=== PATIENT | female | born 1955 | race Caucasian/White ===

== ENCOUNTER 2017-03-02 13:51 | Emergency (ER) | payer OTHER ==
[2017-03-02 13:55] VITALS: TEMP 98.2; BMI 22.1
--- NOTE | 2017-03-02 14:58 | PDOC ---
Attending Attestation - Resident Resident Name: Jason Sanz - ED Attending Attestation I have performed the following: I have examined & evaluated the patient, The case was reviewed & discussed with the resident, I agree w/resident's findings & plan, Exceptions are as noted - HPI HPI: 03/02/17 18:10 61y F hx of bronchiectasis presents with presyncope. THe pt states she was doing well this morning and earlier when she was at the gym, she was driving home from [facility] when she felt her vision go dark, sound became very far away,a nd she felt lightheaded. She pulled over and began to feel fine. The pt denies any associated headache, speech changes, numbness/tingling/weakness, chest pain , palptaitions, diaphoresis, n/v, abd pain, back pain associated wit the symptoms - she describes it as feelin glike she was in a choke hold from in [employer]. Pt does endrose feeling some neck stiffness on R neck when she was taking a shower at home but it has sine resolved. Pt notes b/l finger tingling which is typical for her after going to the gym. pts exam unremarakble. GENERAL: The patient is awake, alert, and fully oriented, Nontoxic - in no acute distress. HEAD: Normocephalic, atraumatic. EYES: extraocular movements intact, sclera anicteric, conjunctiva clear. ENT: Normal voice, Moist mucous membranes. NECK: Normal range of motion, supple LUNGS: Breath sounds equal, clear to auscultation bilaterally. No wheezes, no rhonchi, no rales. HEART: Regular rate and rhythm, normal S1 and S2 without murmur, rub or gallop. ABDOMEN: Soft, nontender, normoactive bowel sounds. No guarding, no rebound. . No CVA tenderness EXTREMITIES: Normal range of motion, no edema. No clubbing or cyanosis. No cords, erythema, or tenderness. NEUROLOGICAL: No facial assymetry, Normal speech, PSYCH: Normal mood, normal affect. SKIN: Warm, Dry, normal turgor, Suspect vagal episode however differential for the patient's presyncopal episode includes arrhythmia, metabolic derangements, anemia. Consider possible arrhythmia the patient's EKG is a sinus rhythm The patient has few other risk factors for arrhythmias. The patient's blood work was reviewed without any abnormalities aside an elevated CK. I suspect that this may be secondary to the patient's 1 hour long work out at the gym Will hydrate the patient and will recheck the CK if it is on a down trend will likely discharge patient with primary care follow-up. - Physicial Exam PE: 03/03/17 12:23 see above - Medical Decision Making 03/03/17 12:23 see above Heart Score/ECG Review - ECG Impressions Comment:: 03/02/17 18:18 Twelve-lead EKG was performed and reviewed by me. There is normal sinus rhythm with a normal rate. rate of [address] changes suggestive of ischemia imp: NSR
[2017-03-02 15:09] LABS: BASOPHIL 0.3 % (0-2.0); EOSINOPHIL 2.5 % (0-4.5); MCH 32.6 pg (25.7-33.7); MCHC 34.5 g/dl (32.0-36.0); MEAN CELL VOLUME 94.3 fl (80-96); MEAN PLT VOLUME 8.4 fl (7.5-11.1); NEUTROPHILS 66.2 % (42.8-82.8); PLATELET COUNT 177 K/MM3 (134-434); RDW 13.3 % (11.6-15.6); WHITE BLOOD COUNT 7.2 K/mm3 (4.0-10.0)
[2017-03-02 15:39] LABS: ALBUMIN 4.1 g/dl (3.4-5.0); ALK PHOS 69 U/L (45-117); ANION GAP 9 (8-16); BILIRUBIN,TOTAL 0.5 mg/dL (0.2-1.0); CO2 29 mmol/L (21-32); CREATININE 0.9 mg/dL (0.55-1.02); GLUCOSE,RANDOM 93 mg/dL (74-106); SGOT/AST 94 U/L (15-37); SGPT/ALT 49 U/L (12-78); TOT PROT 6.9 g/dl (6.4-8.2)
[2017-03-02 15:52] LABS: CPK 5230 IU/L (26-192); TROPONIN I < 0.02 ng/ml (0.00-0.05)
[2017-03-02 16:25] LABS: URINE APPEARANCE CLEAR; URINE BILIRUBIN NEGATIVE (NEGATIVE); URINE BLOOD NEGATIVE (NEGATIVE); URINE COLOR STRAW; URINE GLUCOSE (UA) NEGATIVE (NEGATIVE); URINE KETONE 1+ (NEGATIVE); URINE LEUK ESTERASE NEGATIVE (NEGATIVE); URINE NITRITE NEGATIVE (NEGATIVE); URINE PROTEIN NEGATIVE (NEGATIVE); URINE UROBILINOGEN NEGATIVE mg/dL (0.2-1.0)
[2017-03-02] MEDS ORDERED: SODIUM CHLORIDE 1,000 ML IV ONE (17:01)
[2017-03-02 20:01] LABS: TROPONIN I < 0.02 ng/ml (0.00-0.05)
[2017-03-02 20:04] LABS: CPK 4367 IU/L (26-192)
[2017-03-02 20:08] VITALS: BP 120/83; PULSE 64
--- NOTE | 2017-03-02 20:17 | PDOC ---
*Physical Exam - Vital Signs Last Vital Signs Temp Pulse Resp BP Pulse Ox 98.2 F 64 20 120/83 100 03/02/17 13:53 03/02/17 20:08 03/02/17 20:08 03/02/17 20:08 03/02/17 20:08 ED Treatment Course - LABORATORY CBC & Chemistry Diagram: 03/02/17 15:00 03/02/17 15:00 - ADDITIONAL ORDERS Additional order review: Laboratory Results 03/02/17 03/02/17 03/02/17 19:10 16:04 15:00 Sodium Potassium Chloride Carbon Dioxide Anion Gap BUN Creatinine Creat Clearance w eGFR Random Glucose Calcium Total Bilirubin AST ALT Alkaline Phosphatase Creatine Kinase 4367 H 5230 H Creatine Kinase Index 0.0 CK-MB (CK-2) 2.857 Troponin I < 0.02 < 0.02 Total Protein Albumin Urine Color Straw Urine Appearance Clear Urine pH 5.0 Urine Protein Negative Urine Glucose (UA) Negative Urine Ketones 1+ H Urine Blood Negative Urine Nitrite Negative Urine Bilirubin Negative Urine Urobilinogen Negative Ur Leukocyte Esterase Negative 03/02/17 15:00 Sodium 140 Potassium 4.1 Chloride 102 Carbon Dioxide 29 Anion Gap 9 BUN 15 Creatinine 0.9 Creat Clearance w eGFR > 60 Random Glucose 93 Calcium 9.0 Total Bilirubin 0.5 AST 94 H ALT 49 Alkaline Phosphatase 69 Creatine Kinase Creatine Kinase Index CK-MB (CK-2) Troponin I Total Protein 6.9 Albumin 4.1 Urine Color Urine Appearance Urine pH Urine Protein Urine Glucose (UA) Urine Ketones Urine Blood Urine Nitrite Urine Bilirubin Urine Urobilinogen Ur Leukocyte Esterase 03/02/17 15:00 RBC 3.97 MCV 94.3 MCHC 34.5 RDW 13.3 MPV 8.4 Neutrophils % 66.2 Lymphocytes % 24.5 Monocytes % 6.5 Eosinophils % 2.5 Basophils % 0.3 - Medications Given in the ED: ED Medications Discontinued Medications Generic Name Dose Route Start Last Admin Trade Name Freq PRN Reason Stop Dose Admin Sodium Chloride 1,000 mls @ 1,000 mls/hr 03/02/17 17:01 03/02/17 17:41 Normal Saline - IV 03/02/17 18:00 1,000 mls/hr .Q1H ONE Administration *DC/Admit/Observation/Transfer Diagnosis at time of Disposition: Elevated creatine kinase level - Discharge Dispostion Disposition: HOME Condition at time of disposition: Stable Admit: No - Referrals Referrals: STAFF,NOT ON [Primary Care Provider] - Marques Martinez MD [Staff Physician] - - Patient Instructions Printed Discharge Instructions: Creatine Kinase Additional Instructions: Drink plenty of fluids, make sure you urinate often. Follow with your doctor for re-evaluation in the next few days.
--- NOTE | 2017-03-02 20:20 | PDOC ---
History of Present Illness - General Chief Complaint: Lightheaded Stated Complaint: NEAR SYNCOPE Time Seen by Provider: 03/02/17 14:17 - History of Present Illness Initial Comments: 03/02/17 20:21 61F w/ hx of bronchiectasis and HRT for past 10 years presenting with "almost blacking out." She reports that she was driving back from the gym when she felt like everything was going dark. So, she pulled over to the side of the road, and relaxed. She denies nausea, emesis, diaphoresis, SOB, headache, fevers, chills. She states that after that one episode, she developed pain on the right side of her neck along with a racing heart and numbness in her fingers. 03/02/17 20:27 Past History - Past Medical History Allergies/Adverse Reactions: Allergies Allergy/AdvReac Type Severity Reaction Status Date / Time No Known Allergies Allergy Verified 03/02/17 13:56 Home Medications: Ambulatory Orders Estrogen,Con/M-Progest Acet [Prempro 0.45-1.5 mg Tablet] 1 each PO DAILY Fexofenadine/Pseudoephedrine [Karla-D 24 Hour Tablet] 1 each PO DAILY Guaifenesin [Mucinex] 1,200 mg PO DAILY 03/02/17 Other medical history: BRONCHIECTOSIS Comment:: 03/02/17 20:24 PMH: bronchiectasis PSH: none Meds: HRT and karla Allergies: NKDA Fam Hx: lung cancer and heart disease Social Hx: drinks 2-3 glasses of wine a day for past 20 years, no drugs, no tobacco - Psycho/Social/Smoking Cessation Hx Suicidal Ideation: No Smoking History: Never smoked Hx Alcohol Use: Yes (OCCASIONALLY) Drug/Substance Use Hx: No Review of Systems - Review of Systems Comments:: 03/02/17 20:25 GENERAL: No fever, chills, night sweats, or weakness. HEAD, EYES, EARS, NOSE AND THROAT:+ change in vision, no ear pain, or sore throat CARDIOVASCULAR: No chest pain RESPIRATORY: No cough, wheezing, or hemoptysis. GASTROINTESTINAL: No nausea, vomiting, diarrhea, constipation, or blood in the stool. GENITOURINARY: No dysuria, frequency, or urgency MUSCULOSKELETAL: No joint or muscle swelling or pain. SKIN: No rashes or pruritis ENDOCRINE: No increased thirst. No abnormal weight change NEUROLOGIC: No headache, loss of consciousness, or change in strength/sensation. *Physical Exam - Vital Signs Last Vital Signs Temp Pulse Resp BP Pulse Ox 98.2 F 64 20 120/83 100 03/02/17 13:53 03/02/17 20:08 03/02/17 20:08 03/02/17 20:08 03/02/17 20:08 - Physical Exam Comments: 03/02/17 20:26 GENERAL: Awake, alert, and fully oriented, in no acute distress HEAD: normocephalic, atraumatic HEENT: PERRLA, EOMI NECK: Normal ROM, mild swelling on right side of neck, no erythema, non-tender HEART: Regular rate and rhythm, normal S1 and S2, no murmurs, rubs or gallops, peripheral pulses normal and equal bilaterally. LUNGS: CTAB, no wheezing, no rales ABDOMEN: Soft, nontender, nondistended, normoactive bowel sounds. No guarding, no rebound. No masses EXTREMITIES: Normal range of motion, no edema. SKIN: Warm, dry, no rashes or lesions noted. NEUROLOGICAL: Cranial nerves II through XII grossly intact. Normal speech, normal gait, no focal sensorimotor deficits ED Treatment Course - LABORATORY CBC & Chemistry Diagram: 03/02/17 15:00 03/02/17 15:00 - ADDITIONAL ORDERS Additional order review: Laboratory Results 03/02/17 03/02/17 03/02/17 19:10 16:04 15:00 Sodium Potassium Chloride Carbon Dioxide Anion Gap BUN Creatinine Creat Clearance w eGFR Random Glucose Calcium Total Bilirubin AST ALT Alkaline Phosphatase Creatine Kinase 4367 H 5230 H Creatine Kinase Index 0.0 CK-MB (CK-2) 2.857 Troponin I < 0.02 < 0.02 Total Protein Albumin Urine Color Straw Urine Appearance Clear Urine pH 5.0 Urine Protein Negative Urine Glucose (UA) Negative Urine Ketones 1+ H Urine Blood Negative Urine Nitrite Negative Urine Bilirubin Negative Urine Urobilinogen Negative Ur Leukocyte Esterase Negative 03/02/17 15:00 Sodium 140 Potassium 4.1 Chloride 102 Carbon Dioxide 29 Anion Gap 9 BUN 15 Creatinine 0.9 Creat Clearance w eGFR > 60 Random Glucose 93 Calcium 9.0 Total Bilirubin 0.5 AST 94 H ALT 49 Alkaline Phosphatase 69 Creatine Kinase Creatine Kinase Index CK-MB (CK-2) Troponin I Total Protein 6.9 Albumin 4.1 Urine Color Urine Appearance Urine pH Urine Protein Urine Glucose (UA) Urine Ketones Urine Blood Urine Nitrite Urine Bilirubin Urine Urobilinogen Ur Leukocyte Esterase 03/02/17 15:00 RBC 3.97 MCV 94.3 MCHC 34.5 RDW 13.3 MPV 8.4 Neutrophils % 66.2 Lymphocytes % 24.5 Monocytes % 6.5 Eosinophils % 2.5 Basophils % 0.3 - Medications Given in the ED: ED Medications Discontinued Medications Generic Name Dose Route Start Last Admin Trade Name Freq PRN Reason Stop Dose Admin Sodium Chloride 1,000 mls @ 1,000 mls/hr 03/02/17 17:01 03/02/17 17:41 Normal Saline - IV 03/02/17 18:00 1,000 mls/hr .Q1H ONE Administration Medical Decision Making - Medical Decision Making 03/02/17 20:27 61F w/ hx of bronchiectasis and HRT for past 10 years presenting with presyncope. Exam benign, labs and imaging unremarkable except for CK which was elevated above 5000. She was given fluids, and repeat CK showed lower level in 4000s. High CK likely due to workout she had before presenting to ED. *DC/Admit/Observation/Transfer Diagnosis at time of Disposition: Elevated CPK - Discharge Dispostion Disposition: HOME Condition at time of disposition: Improved Admit: No - Referrals Referrals: Marques Martinez MD [Staff Physician] - STAFF,NOT ON [Primary Care Provider] - - Patient Instructions Printed Discharge Instructions: Creatine Kinase Additional Instructions: Drink plenty of fluids, make sure you urinate often. Follow with your doctor for re-evaluation in the next few days. - Post Discharge Activity - Attestations Physician Attestion: 03/02/17 20:20 I, Dr. Jason Sanz, attest that this document has been prepared under my direction and personally reviewed by me in its entirety. I further attest, that it accurately reflects all work, treatment, procedures and medical decision -making performed by me.
--- NOTE | 2017-03-04 16:47 | EKG ---
Test Reason : Blood Pressure : / mmHG Vent. Rate : 064 BPM Atrial Rate : 064 BPM P-R Int : 154 ms QRS Dur : 088 ms QT Int : 430 ms P-R-T Axes : 069 059 047 degrees QTc Int : 443 ms SINUS RHYTHM WITH PREMATURE SUPRAVENTRICULAR COMPLEXES POSSIBLE LEFT ATRIAL ENLARGEMENT BORDERLINE ECG NO PREVIOUS ECGS AVAILABLE Confirmed by VICTOR HUGO LAM MD ([id number] on 03/04/2017 4:47:14 PM Referred By: Confirmed By:VICTOR HUGO LAM MD
== END 2017-03-02 20:33 | disposition home or self-care (01) ==
LOC: JER 13:51
PROC: 3E0337Z Introduction of Electrolytic and Water Balance Substance into Peripheral Vein, Percutaneous Approach (ICD-10-PCS; principal; 2017-03-02)
DX: R79.9 Abnormal finding of blood chemistry, unspecified (principal); J47.9 Bronchiectasis, uncomplicated
CPT/HCPCS: 36415; 80053; 81003; 82553; 84484; 85025; 93005; 93010; 99283-25

== ENCOUNTER 2023-01-06 08:27 | Day surgery (SDC) | payer OTHER ==
[2022-12-25 15:26] VITALS: BMI 21.3
[2023-01-06] MEDS ORDERED: CELECOXIB 200 MG CAPSULE ONE (08:39)
[2023-01-06] MEDS ORDERED: CELECOXIB 200 MG CAPSULE PO ONE (09:30)
[2023-01-06] MEDS ORDERED: CEFAZOLIN 2 GM in DEXTROSE 5%-WATER - 50 ML IVPB ONE (09:30)
[2023-01-06] MEDS ORDERED: TRANEXAMIC ACID 1000 MG/10 ML VIAL IVPUSH ONE (10:00)
[2023-01-06] MEDS ORDERED: BUPIVACAINE HCL/PF 0.5% (5 MG/ML) 30 ML VIAL IJ ONE (10:23)
[2023-01-06] MEDS ORDERED: MIDAZOLAM HCL 2 MG/2 ML SINGLE DOSE VIAL ONE (10:23)
[2023-01-06] MEDS ORDERED: VANCOMYCIN 1,000 MG VIAL (RESTRICTED TO ID ONLY) ONE (10:47)
[2023-01-06] MEDS ORDERED: ceFAZolin SODIUM 1 GM VIAL ONE ×2 (10:47→11:21)
[2023-01-06] MEDS ORDERED: PROPOFOL 40 ML ONE (11:21)
[2023-01-06] MEDS ORDERED: ONDANSETRON 4 MG/2 ML VIAL ONE (11:21)
[2023-01-06] MEDS ORDERED: DEXAMETHASONE SOD PHOSPHATE 4 MG/1 ML VIAL ONE (11:21)
[2023-01-06] MEDS ORDERED: TRANEXAMIC ACID 1000 MG/10 ML VIAL ONE (11:21)
[2023-01-06] MEDS ORDERED: KETOROLAC TROMETHAMINE 30 MG/1 ML VIAL ONE (11:21)
[2023-01-06] MEDS ORDERED: PHENYLEPHRINE HCL 10 MG/1 ML SINGLE DOSE VIAL ONE (11:26)
[2023-01-06] MEDS ORDERED: MAG HYDROX/AL HYDROX/SIMETH 30 ML UNIT-DOSE CUP PO PRN (11:47)
[2023-01-06] MEDS ORDERED: ONDANSETRON 4 MG/2 ML VIAL IVPUSH PRN ×2 (11:47→13:09)
[2023-01-06] MEDS ORDERED: LACTATED RINGERS SOLUTION 1,000 ML IV SCH ×2 (12:00→13:15)
[2023-01-06] MEDS ORDERED: ACETAMINOPHEN 1000 MG/100 ML BAG IVPB ONE (13:09)
[2023-01-06] MEDS ORDERED: ACETAMINOPHEN INJECTION 100 ML IVPB ONE (13:42)
[2023-01-06 19:52] VITALS: RESP 18
[2023-01-06] MEDS: CEFAZOLIN SODIUM 2 GM in DEXTROSE 5%-WATER 100 ML IVPB SCH (20:00)
[2023-01-06] MEDS ORDERED: oxyCODONE HCL 5 MG TABLET PO PRN ×2 (21:11)
[2023-01-06] MEDS: SENNOSIDES/DOCUSATE COMBO (SENNA PLUS) TABLET (UD) PO SCH (21:18)
[2023-01-07] MEDS: CEFAZOLIN SODIUM 2 GM in DEXTROSE 5%-WATER 100 ML IVPB SCH (04:00)
[2023-01-07 06:24] VITALS: TEMP 98.1
[2023-01-07] MEDS ORDERED: ASPIRIN 325 MG TABLET PO SCH (08:00)
[2023-01-07 08:07] LABS: HEMATOCRIT 31.1 % (32.4-45.2); HEMOGLOBIN 10.3 G/dL (10.7-15.3); MCH 32.5 pg (25.7-33.7); MCHC 33.1 g/dl (32.0-36.0); MEAN CELL VOLUME 98.5 fl (80-96); PLATELET COUNT 165.3 10^3/uL (134-434); RBC 3.16 10^6/uL (3.60-5.2); RDW 13.1 % (11.6-15.6); WHITE BLOOD COUNT 11.9 10^3/uL (4.0-10.8)
[2023-01-07 09:03] VITALS: BP 130/65; PULSE 72
[2023-01-07] MEDS: SENNOSIDES/DOCUSATE COMBO (SENNA PLUS) TABLET (UD) PO SCH (09:08)
[2023-01-07] MEDS ORDERED: PANTOPRAZOLE 40 MG TABLET PO SCH (10:00)
[2023-01-07] MEDS ORDERED: MULTIVITAMINS (DAILY MVI) TABLET (FP) PO SCH (10:00)
[2023-01-07] MEDS ORDERED: PATIENT'S OWN MEDICATION (NON-FORMULARY) (Estrogen,Con/M-Progest Acet [Prempro 0.45-1.5 Mg PO SCH (10:00)
== END 2023-01-07 12:45 | disposition home health service (06) ==
LOC: FASUSAT 08:27 → FM/S 14:49 → FASUSAT 01-07 12:45
PROVIDERS: ATTEND Orthopaedic Surgery
PROC: 8E0Y0CZ Robotic Assisted Procedure of Lower Extremity, Open Approach (ICD-10-PCS; 2023-01-06)
PROC: 0SRC0JA Replacement of Right Knee Joint with Synthetic Substitute, Uncemented, Open Approach (ICD-10-PCS; principal; 2023-01-06 11:54)
DX: M17.11 Unilateral primary osteoarthritis, right knee (principal)
CPT/HCPCS: 20985; 27447; C1776; S2900; 36415; 73502-TC-RT-FY; 85027; 88305-TC; 88311-TC; 94760; 97010-GP; 97116-GP; 97162-GP